=== PATIENT | female | born 1990 ===

== ENCOUNTER 2020-03-23 10:39 | Inpatient (IN) | payer MEDICAID, SELFPAY ==
[2020-03-23] MEDS ORDERED: LACTATED RINGERS 500 ML IV ONE (11:42)
[2020-03-23] MEDS: LACTATED RINGERS 1,000 ML IV SCH ×2 (13:07→18:58)
[2020-03-23] MEDS ORDERED: MAGNESIUM SULFATE 2 GM/50 ML BAG IV ONE (13:33)
[2020-03-23] MEDS ORDERED: MAGNESIUM SULFATE 40GM/1000ML 40 GM/1,000 ML BAG IV ONE ×2 (13:36→14:00)
[2020-03-23] MEDS: AMPICILLIN/NS 2 GM/100 ML 2 GM/100 ML BAG IV SCH ×2 (14:23→20:17)
[2020-03-23] MEDS ORDERED: MAGNESIUM SULFATE 4 GM/100 ML BAG IV ONE (14:31)
[2020-03-23] MEDS ORDERED: BETAMET ACET/BETAMET NA PH 6 MG/ML INJ 5 ML MDV IM SCH (15:00)
[2020-03-23 16:13] LABS: Basophils % (Auto) 0.6 % (0.0-1.8); Eosinophils % (Auto) 0.6 % (0.0-4.3); Hematocrit 35.7 % (30.3-42.9); Hemoglobin 11.6 gm/dl (10.1-14.3); Lymphocytes # (Auto) 1.3 K/mm3 (1.2-5.4); Lymphocytes % (Auto) 19.9 % (13.4-35.0); Mean Corpuscular HGB Conc 33 % (30-34); Mean Corpuscular Volume 87 fl (79-97); Monocytes # (Auto) 0.5 K/mm3 (0.0-0.8); Monocytes % (Auto) 7.3 % (0.0-7.3); Platelet Count 270 K/mm3 (140-440); Red Blood Count 4.11 M/mm3 (3.65-5.03)
[2020-03-23] MEDS ORDERED: fentaNYL 100 MCG/2 ML INJ IV PRN (16:21)
[2020-03-23] MEDS ORDERED: LIDOCAINE (2%) 20 MG/1 ML VIAL 20 ML MDV INFILTRATI ONE (16:21)
[2020-03-23] MEDS ORDERED: MINERAL OIL 30 ML ORAL LIQD PO PRN (16:21)
[2020-03-23] MEDS ORDERED: ePHEDrine SULFATE 50 MG/1 ML INJ IV PRN (16:21)
[2020-03-23] MEDS ORDERED: TERBUTALINE 1 MG/1 ML INJ SUB-Q PRN (16:21)
[2020-03-23 16:30] LABS: Bacteria,Urine 1+ /HPF (Negative); Bilirubin,Urine NEG (Negative); Blood,Urine SM (Negative); Color,Urine Yellow (Yellow); Protein,Urine <15 mg/dL mg/dL (Negative); Urobilinogen,Urine < 2.0 mg/dL (<2.0); WBC,Urine < 1.0 /HPF (0.0-6.0)
[2020-03-23] MEDS ORDERED: LACTATED RINGERS 1,000 ML IV SCH (17:00)
[2020-03-23] MEDS ORDERED: OXYTOCIN DRIP 30,000 MILLIUNITS/500 ML BAG IV ONE (20:15)
[2020-03-23] MEDS ORDERED: miSOPROStol 200 MCG TAB PR ONE (21:30)
[2020-03-23] MEDS ORDERED: miSOPROStol 200 MCG TAB ONE (21:57)
--- NOTE | 2020-03-23 22:01 | History and Physical Report ---
History of Present Illness Date of examination: 03/23/20 Date of admission: 03/23/20 16:31 Chief complaint: contractions History of present illness: 30-year-old -0-0-2 at 33+5 weeks presents in active labor with advanced cervical dilatation of 5 cm. Patient denies any precipitating event for her contractions. GBS status is unknown. She denies any leakage of fluid or vaginal bleeding. Past History Past Medical History: no pertinent history Past Surgical History: no surgical history Social history: - Obstetrical History Expected Date of Delivery: 05/06/20 Actual Gestation: 33 Week(s) 5 Day(s) : 3 Para: 2 Hx # Term Pregnancies: 2 Number of Pregnancies: 0 Spontaneous Abortions: 0 Induced : 0 Number of Living Children: 2 Medications and Allergies Allergies Allergy/AdvReac Type Severity Reaction Status Date / Time No Known Allergies Allergy Unverified 03/23/20 11:37 Active Meds: Active Medications Betamethasone Acet/Betameth SodPhos (Celestone Soluspan) 12 mg IM Q24H [facility] Stop: 03/24/20 15:01 Last Admin: 03/23/20 14:24 Dose: 12 mg Documented by: Ephedrine Sulfate (Ephedrine Sulfate) 10 mg IV Q2M PRN PRN Reason: Hypotension Fentanyl (Sublimaze) 100 mcg IV Q2H PRN PRN Reason: Pain,Severe (7-10) LABOR PAIN Last Admin: 03/23/20 19:10 Dose: 100 mcg Documented by: Lactated Ringer's (Lactated Ringers) 1,000 mls @ 125 mls/hr IV DIRECT MIKAYLA Last Admin: 03/23/20 18:58 Dose: 125 mls/hr Documented by: Magnesium Sulfate (Magnesium Sulfate 40gm/1000ml) 40 gm in 1,000 mls @ 50 mls/hr IV ONCE ONE Stop: 03/24/20 09:59 Last Admin: 03/23/20 14:23 Dose: 50 mls/hr Documented by: Ampicillin Sodium (Ampicillin/Ns 2 Gm/100 Ml) 2 gm in 100 mls @ 100 mls/hr IV Q6HR MIKAYLA; Protocol Stop: 03/25/20 06:59 Last Admin: 03/23/20 20:17 Dose: 100 mls/hr Documented by: Lactated Ringer's (Lactated Ringers) 1,000 mls @ 125 mls/hr IV DIRECT MIKAYLA Mineral Oil (Mineral Oil) 30 ml PO QHS PRN PRN Reason: Constipation Terbutaline Sulfate (Brethine) 0.25 mg SUB-Q ONCE PRN PRN Reason: Hyperstimulation/Hypertonicity Review of Systems All systems: negative Genitourinary: pelvic pain, contractions - Vital Signs Vital signs: Vital Signs Pulse Pulse Ox 93 H 97 03/23/20 11:23 03/23/20 11:23 Temp Pulse Resp BP Pulse Ox 98.7 F 112 H 12 118/75 97 03/23/20 19:24 03/23/20 21:57 03/23/20 19:24 03/23/20 19:57 03/23/20 21:57 - Physical Exam Breasts: Positive: deferred Cardiovascular: Regular rate Lungs: Positive: Clear to auscultation Abdomen: Positive: normal appearance - Obstetrical Cervical Dilatation: 5 Results Result Diagrams: 03/23/20 Unknown Abnormal lab results 03/23/20 Range/Units Unknown RDW 18.0 H (13.2-15.2) % Seg Neutrophils % 71.6 H (40.0-70.0) % All other labs normal. Assessment and Plan - Patient Problems (1) labor Current Visit: Yes Status: Acute Plan to address problem: Admit for magnesium sulfate therapy, steroids and antibiotics
--- NOTE | 2020-03-23 22:03 | Procedure Note ---
OB Delivery Note - Delivery Date of Delivery: 03/23/20 Surgeon: ONEIDA GRIJALVA Estimated blood loss: other (400 mL) - Vaginal Delivery presentation: vertex Delivery position: OA Intrapartum events: labor-<37 weeks, uterine atony Delivery monitor: external FHT, external uterine Route of delivery: Delivery placenta: spontaneous Delivery cord: 3 umbilical vessels Episiotomy: none Delivery laceration: none Anesthesia: none Delivery comments: Patient progressed to complete complete +1 after spontaneous rupture membranes. The patient pushed to deliver a live-born male infant with Apgars of 8 and 9 weight 6 pounds 2 ounces. After delivery of the head the shoulders delivered without difficulty. The infant was bulb suctioned and the cord was clamped and cut. The was placed on the patient's abdomen. The placenta delivered spontaneously intact with a three-vessel cord. No lacerations were noted. The patient developed uterine atony that responded to Pitocin and uterine massage. Estimated blood loss 400 mL - Infant A at 1 minute: 8 at 5 minutes: 9 Infant Gender: Male (Weight 6 pounds 2 ounces)
[2020-03-23] MEDS: IBUPROFEN 800 MG TAB PO PRN (23:05)
[2020-03-24] MEDS ORDERED: OXYTOCIN DRIP 30 UNITS/500 ML BAG IV SCH (02:00)
--- NOTE | 2020-03-24 07:38 | Progress Note ---
Assessment and Plan A: PPD#1 s/p at 33 wks Pruritis P: Benadryl PRN Abdominal Binder per pt request Routine care Subjective - Subjective Date of service: 03/24/20 Principal diagnosis: s/p delivery Interval history: Pt c/o itchy skin this morning. Otherwise no complaints. Patient reports: appetite normal, voiding normally, pain well controlled, ambulating normally : in NICU Objective - Vital Signs Latest vital signs: Vital Signs Temp Pulse Resp BP BP Pulse Ox 03/24/20 05:19 98.6 F 70 16 114/79 03/23/20 23:30 98.3 F 109 H 20 118/78 99 03/23/20 23:10 98.2 F 03/23/20 23:02 113 H 97 03/23/20 22:57 107 H 97 03/23/20 22:53 107 H 98 03/23/20 22:48 113 H 97 03/23/20 22:42 107 H 98 03/23/20 22:38 107 H 99 03/23/20 22:32 110 H 97 03/23/20 22:28 106 H 97 03/23/20 22:23 104 H 96 03/23/20 22:17 109 H 97 03/23/20 22:13 111 H 98 03/23/20 22:08 113 H 97 03/23/20 22:02 113 H 98 03/23/20 21:57 112 H 97 03/23/20 21:53 113 H 97 03/23/20 21:48 123 H 99 03/23/20 21:43 116 H 99 03/23/20 21:38 127 H 97 03/23/20 21:33 122 H 98 03/23/20 21:28 108 H 99 03/23/20 21:23 107 H 98 03/23/20 21:18 101 H 97 03/23/20 21:13 104 H 98 03/23/20 21:07 105 H 97 03/23/20 21:02 108 H 98 03/23/20 20:57 106 H 98 03/23/20 20:52 111 H 96 03/23/20 20:47 112 H 100 03/23/20 20:42 105 H 97 03/23/20 20:37 108 H 98 03/23/20 20:32 98 H 96 11/12/20 20:27 98 H 98 11/12/20 20:22 107 H 98 11/12/20 20:17 104 H 98 11/12/20 20:12 100 H 97 11/12/20 20:07 107 H 98 11/12/20 20:02 99 H 98 11/12/20 19:57 99 H 118/75 99 11/12/20 19:52 91 H 96 11/12/20 19:47 93 H 96 11/12/20 19:42 102 H 96 11/12/20 19:38 97 H 97 11/12/20 19:32 98 H 97 11/12/20 19:27 97 H 104/63 96 11/12/20 19:24 98.7 F 94 H 12 106/74 98 11/12/20 19:22 95 H 95 11/12/20 19:17 95 H 94 11/12/20 19:16 99 H 93 11/12/20 19:12 98 H 98 11/12/20 19:07 99 H 97 11/12/20 19:02 98 H 97 11/12/20 18:57 105 H 106/74 97 11/12/20 18:53 99 H 97 11/12/20 18:48 101 H 96 11/12/20 18:42 96 H 96 11/12/20 18:38 98 H 97 11/12/20 18:33 99 H 96 11/12/20 18:28 98 H 123/75 97 11/12/20 18:23 102 H 96 11/12/20 18:18 99 H 96 11/12/20 18:12 97 H 98 11/12/20 18:07 98 H 98 11/12/20 18:02 91 H 97 11/12/20 17:57 102 H 107/67 97 11/12/20 17:53 99 H 97 11/12/20 17:48 98 H 96 11/12/20 17:43 102 H 96 11/12/20 17:38 103 H 98 11/12/20 17:33 99 H 97 11/12/20 17:28 106 H 96 11/12/20 17:27 102 H 110/77 11/12/20 17:23 100 H 95 11/12/20 17:22 102 H 91 11/12/20 17:18 102 H 96 11/12/20 17:13 102 H 98 11/12/20 17:08 107 H 93 20 17:03 110 H 98 03/23/20 17:00 98.1 F 108 H 20 107/69 98 20 16:58 109 H 96 20 16:57 108 H 107/69 03/23/20 16:53 106 H 98 03/23/20 16:48 103 H 97 03/23/20 16:43 114 H 96 03/23/20 16:38 108 H 95 03/23/20 16:33 105 H 95 03/23/20 16:28 111 H 99 03/23/20 16:27 111 H 110/68 03/23/20 16:23 112 H 96 03/23/20 16:18 109 H 97 03/23/20 16:13 106 H 96 03/23/20 16:08 105 H 97 03/23/20 16:03 108 H 99 03/23/20 15:58 108 H 121/71 96 03/23/20 15:53 114 H 98 03/23/20 15:48 107 H 98 03/23/20 15:43 104 H 97 03/23/20 15:38 109 H 97 03/23/20 15:33 92 H 98 03/23/20 15:28 100 H 102/69 98 03/23/20 15:23 96 H 98 03/23/20 15:18 100 H 98 03/23/20 15:13 98 H 97 03/23/20 15:08 95 H 98 03/23/20 15:03 88 98 03/23/20 14:58 92 H 99 03/23/20 14:56 90 104/63 03/23/20 14:53 95 H 98 03/23/20 14:48 94 H 99 03/23/20 14:43 101 H 98 03/23/20 14:41 96 H 110/66 20 14:38 90 97 03/23/20 14:33 95 H 98 03/23/20 14:28 90 97 03/23/20 13:14 88 98 03/23/20 13:09 87 99 03/23/20 13:08 82 108/70 03/23/20 13:07 98.5 F 89 20 108/70 03/23/20 12:38 92 H 98 03/23/20 12:33 86 98 03/23/20 12:28 98 H 98 03/23/20 12:23 85 98 03/23/20 12:18 86 97 03/23/20 12:13 89 98 03/23/20 12:08 89 98 03/23/20 12:03 84 97 03/23/20 11:58 97 H 97 03/23/20 11:53 86 98 03/23/20 11:48 88 97 03/23/20 11:43 94 H 98 03/23/20 11:38 89 97 03/23/20 11:33 91 H 97 03/23/20 11:28 92 H 98 03/23/20 11:24 90 110/70 03/23/20 11:23 93 H 97 Intake and Output 03/23/20 03/24/20 03/24/20 22:59 06:59 14:59 Intake Total 1831.25 540 Output Total 1600 1401 Balance 231.25 -861 Intake: IV 1831.25 AMPICILLIN/NS 2 GM/100 ML 100 2 gm In 100 ml @ 100 mls /hr IV Q6HR MIKAYLA Rx#: [id number] Lactated Ringers 1,000 ml 731.25 @ 125 mls/hr IV DIRECT MIKAYLA Rx#:[id number] Lactated Ringers 1,000 ml 1000 @ 125 mls/hr IV DIRECT MIKAYLA Rx#:[id number] Oral 240 Intake, Free Water 300 Output: Urine 1600 1401 Indwelling Catheter 1600 1 Void 1400 Other: Total, Intake Amount 240 Total, Output Amount 900 600 # Voids Indwelling Catheter 500 Void 1 Estimated Blood Loss 400 - Exam Breasts: Present: deferred Abdomen: Present: soft Uterus: Present: fundal height at umbilicus Extremities: Absent: edema - Labs Labs: Abnormal lab results 03/23/20 Range/Units Unknown RDW 18.0 H (13.2-15.2) % Seg Neutrophils % 71.6 H (40.0-70.0) %
[2020-03-24] MEDS: IBUPROFEN 800 MG TAB PO PRN (08:24)
[2020-03-24] MEDS: diphenhydrAMINE 50 MG/ML VIAL IV PRN ×2 (08:25→14:53)
[2020-03-24 10:56] LABS: Hematocrit 28.7 % (30.3-42.9); Hemoglobin 9.6 gm/dl (10.1-14.3)
[2020-03-25] MEDS: IBUPROFEN 800 MG TAB PO PRN (00:05)
--- NOTE | 2020-03-25 09:18 | Progress Note ---
Assessment and Plan A: S/p at 33w GA, PPD2 Asymptomatic anemia due to blood loss (hgb 9.6) Infant in NICU, stable /pumping Difficulty applying for emergency medicaid P: Rx ferrous sulfate at d/c Hand pump given for home use consult planned for 03/27 Medicaid support prior to d/c D/c today Subjective - Subjective Date of service: 03/25/20 Principal diagnosis: s/p Interval history: S/p at 33w GA. PPD2 Patient reports: appetite normal, voiding normally, pain well controlled, flatus, no bowel movement [place]: doing well, in NICU, bottle feeding (bottle and breast (pumped breast milk)) Objective - Vital Signs Latest vital signs: Vital Signs Temp Pulse Resp BP Pulse Ox 03/25/20 01:07 97.5 F L 79 18 109/73 98 03/25/20 00:05 18 03/24/20 16:22 98.1 F 89 18 112/76 98 Intake and Output 03/24/20 03/25/20 03/25/20 23:59 07:59 15:59 Intake Total 1440 480 Balance 1440 480 Intake: Oral 480 480 Intake, Free Water 960 Other: Total, Intake Amount 240 240 # Voids Void 1 1 - Exam Breasts: Present: normal, (primarily hand expressing/pumping). Absent: nipple abnormal Lungs: Present: Normal air movement Abdomen: Present: normal appearance, soft. Absent: distention, tenderness Uterus: Present: normal, firm, fundal height below umbilicus (FF-2). Absent: bogginess Extremities: Present: normal. Absent: edema - Labs Labs: Abnormal lab results 03/24/20 Range/Units 10:27 Hgb 9.6 L (10.1-14.3) gm/dl Hct 28.7 L D (30.3-42.9) %
--- NOTE | 2020-03-25 09:23 | Discharge Summary ---
Providers - Providers Date of Admission: 03/23/20 16:31 Date of discharge: 03/25/20 Attending physician: ONEIDA GRIJALVA Primary care physician: ONEIDA GRIJALVA Hospitalization Reason for admission: active labor, IUP - , labor Delivery: Episiotomy: none Laceration: none Other procedures: none complications: none Discharge diagnosis: delivery baby: male Condition at discharge: Good Disposition: DC-01 TO HOME OR SELFCARE Plan - Discharge Medications Prescriptions: Ferrous Sulfate [Feosol 325 MG tab] 325 mg PO BID #60 tablet Ibuprofen [Motrin] 600 mg PO Q6H PRN #60 tablet PRN Reason: Pain - Provider Discharge Summary Activity: routine, no sex for 6 weeks, no heavy lifting 4 weeks, no strenuous exercise Diet: routine Instructions: routine Additional instructions: [] Smoking cessation referral if applicable(refer to patient education folder for contact #) [] Refer to [facility] Booklet Call your doctor immediately for: * Fever > 100.5 * Heavy vaginal bleeding ( >1 pad per hour) * Severe persistent headache * Shortness of breath * Reddened, hot, painful area to leg or breast * Drainage or odor from incision. * Keep incision clean and dry at all times and follow doctor's instructions regarding bathing/showering - Follow up plan Follow up: SADIE HOLMAN M[facility] [employer]PERER [Advanced Practice Nurse] - 14 Days (Please call [facility]'s OBGYN to schedule 2 week followup )
[2020-03-25 15:25] VITALS: BP 115/64
== END 2020-03-25 15:30 | disposition home or self-care (01) | DRG 806 ==
LOC: TRG 10:39 → APU 10:40 → TRG 16:30 → LD 16:31 → OB 03-24 00:58
PROVIDERS: ADMIT Obstetrics & Gynecology; ATTEND Obstetrics & Gynecology
PROC: 10E0XZZ Delivery of Products of Conception, External Approach (ICD-10-PCS; principal; 2020-03-23)
DX: O60.14X0 Preterm labor third trimester with preterm delivery third trimester, not applicable or unspecified (principal); D62 Acute posthemorrhagic anemia; Z37.0 Single live birth; Z3A.33 33 weeks gestation of pregnancy; Z20.828 Contact with and (suspected) exposure to other viral communicable diseases; B96.20 Unspecified Escherichia coli [E. coli] as the cause of diseases classified elsewhere; O90.81 Anemia of the puerperium; O99.73 Diseases of the skin and subcutaneous tissue complicating the puerperium; L29.9 Pruritus, unspecified
CPT/HCPCS: 36415; 81001; 85014; 85018; 85025; 86592; 86850; 86900; 86901; 87076; 87086; 87186; G0378; J0290; J0702; J1200; J3010; J3475; J7120; U0003